=== PATIENT | male | born 1995 | race Caucasian/White ===

== ENCOUNTER → 2019-04-03 | Outpatient (CLI) | payer OTHER ==
[~2019-04-03] MED LIST: ADDERALL 20 MG20 M1 PO
== END ==
LOC: M.MRI 08:11
DX: R51 Headache (principal)

== ENCOUNTER 2019-09-19 02:56 | Emergency (ER) | payer OTHER ==
[~2019-09-19] VITALS: Ht 160 cm; Wt 77.1 kg
[2019-09-19] MEDS ORDERED: ADDERALL 20 MG20 MG PO (03:26)
[2019-09-19] MEDS ORDERED: BUTALB-APAP-CA1 EACH PO (04:49)
[2019-09-19 04:58] VITALS: BP 133/71
== END 2019-09-19 04:58 | disposition home or self-care (01) ==
LOC: M.ERS 02:56
DX: G43.909 Migraine, unspecified, not intractable, without status migrainosus (principal)

== ENCOUNTER 2020-05-13 19:46 | Emergency (ER) | payer OTHER ==
[~2020-05-13] VITALS: Ht 160 cm; Wt 74.4 kg
[~2020-05-13 19:46] MED LIST changes: +ADDERALL 20 MG20 MG PO; +BUTALB-APAP-CA1 EACH PO
[2020-05-13] MEDS ORDERED: AMITRIPTYLINE H10 M1 PO (19:57)
[2020-05-13] MEDS ORDERED: MOBIC7.5 MG PO (19:58)
[2020-05-13 20:36] VITALS: BP 150/70
== END 2020-05-13 20:37 | disposition home or self-care (01) ==
LOC: M.ERS 19:46
DX: R51 Headache (principal)